=== PATIENT | male | born 1995 | race Two or more races ===

== ENCOUNTER 2024-05-22 03:16 | Emergency (ER) | payer SELFPAY ==
[~2024-05-22] VITALS: Ht 175.3 cm; Wt 103.7 kg
[2024-05-22 03:27] VITALS: BP 121/62; PULSE 111; RESP 18; O2SAT 97
== END 2024-05-22 04:03 | disposition left against medical advice (07) ==
LOC: ER 03:16
DX: M79.672 Pain in left foot (principal); Z53.21 Procedure and treatment not carried out due to patient leaving prior to being seen by health care provider